=== PATIENT | male | born 1985 | race African-American/Black ===

== ENCOUNTER 2019-01-24 19:13 | Emergency (ER) | payer MEDICAID ==
[~2019-01-24] VITALS: Ht 172.7 cm; Wt 75.0 kg
[2019-01-25] MEDS ORDERED: KETOROLAC 60MG/2ML VIAL IM STA (00:29)
[2019-01-25 02:50] VITALS: BP 118/72
== END 2019-01-25 03:03 | disposition home or self-care (01) ==
LOC: ER 19:58
DX: J02.9 Acute pharyngitis, unspecified (principal)
CPT/HCPCS: 87070; 87430; 96372; 99283; J1885

== ENCOUNTER 2019-08-03 08:10 | Emergency (ER) | payer MEDICAID ==
[~2019-08-03] VITALS: Ht 172.7 cm; Wt 81.0 kg
[2019-08-03 08:59] VITALS: BP 119/65
== END 2019-08-03 09:00 | disposition left against medical advice (07) ==
LOC: ER 08:42
DX: Z53.21 Procedure and treatment not carried out due to patient leaving prior to being seen by health care provider (principal)

== ENCOUNTER 2019-08-26 11:07 | Emergency (ER) | payer MEDICAID ==
[~2019-08-26] VITALS: Ht 172.7 cm; Wt 62.0 kg
[2019-08-26] MEDS ORDERED: ACETAMINOPHEN 325MG TABLET PO ONE (12:00)
[2019-08-26 14:10] VITALS: BP 108/57
== END 2019-08-26 14:11 | disposition home or self-care (01) ==
LOC: ER 11:07
DX: S49.91XA Unspecified injury of right shoulder and upper arm, initial encounter (principal); Z98.890 Other specified postprocedural states; X58.XXXA Exposure to other specified factors, initial encounter; Y93.89 Activity, other specified; Y92.89 Other specified places as the place of occurrence of the external cause; Y99.8 Other external cause status
CPT/HCPCS: 73030; 99283

== ENCOUNTER 2019-10-17 03:42 | Emergency (ER) | payer MEDICAID ==
[~2019-10-17] VITALS: Ht 172.7 cm; Wt 63.0 kg
[2019-10-17] MEDS: IBUPROFEN 800MG TABLET PO ONE (05:06)
[2019-10-17 05:09] VITALS: BP 108/79
== END 2019-10-17 05:10 | disposition home or self-care (01) ==
LOC: ER 03:42
DX: H60.91 Unspecified otitis externa, right ear (principal); Z98.890 Other specified postprocedural states
CPT/HCPCS: 99282; 99283

== ENCOUNTER 2020-10-11 16:11 | Emergency (ER) | payer MEDICAID ==
[~2020-10-11] VITALS: Ht 172.7 cm; Wt 77.0 kg
[2020-10-11] MEDS ORDERED: IBUPROFEN 600MG TABLET PO ONE (17:00)
[2020-10-11 19:00] VITALS: BP 122/89
== END 2020-10-11 19:01 | disposition home or self-care (01) ==
LOC: ER 16:11
DX: J03.90 Acute tonsillitis, unspecified (principal); F12.10 Cannabis abuse, uncomplicated
CPT/HCPCS: 87070; 87430; 99283